=== PATIENT | female | born 1950 | race Caucasian/White ===

== ENCOUNTER → 2024-04-05 12:31 | Outpatient (BNVA) | payer MEDICARE, SELFPAY | PROVIDERS: Visit Provider Dermatology | DX: L60.9 Nail disorder, unspecified (principal); L81.4 Other melanin hyperpigmentation; L82.1 Other seborrheic keratosis; L60.8 Other nail disorders; L44.8 Other specified papulosquamous disorders; D23.21 Other benign neoplasm of skin of right ear and external auricular canal; D23.22 Other benign neoplasm of skin of left ear and external auricular canal; D48.5 Neoplasm of uncertain behavior of skin | CPT/HCPCS: 11102; 99203 ==

== ENCOUNTER → 2024-04-09 14:17 | Outpatient (BNVA) | payer MEDICARE, SELFPAY | PROVIDERS: Visit Provider Dermatology | DX: D22.5 Melanocytic nevi of trunk (principal); L60.9 Nail disorder, unspecified | CPT/HCPCS: 11755; 11760; 99212 ==

== ENCOUNTER → 2024-04-23 15:26 | Outpatient (BNVA) | payer MEDICARE, SELFPAY | PROVIDERS: Visit Provider Dermatology | DX: D03.61 Melanoma in situ of right upper limb, including shoulder (principal) | CPT/HCPCS: 99213 ==